=== PATIENT | male | born 2000 | race Caucasian/White ===

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

== ENCOUNTER 2022-05-01 19:01 | Emergency (ER) | payer OTHER ==
[2022-05-01 19:09] VITALS: BP 133/89; PULSE 114; TEMP 99; BMI 21.2
== END 2022-05-01 20:44 | disposition home or self-care (01) ==
LOC: FER 19:01
DX: B34.9 Viral infection, unspecified (principal)
CPT/HCPCS: 99282-25

== ENCOUNTER 2023-11-04 08:38 | Emergency (ER) | payer OTHER ==
[2023-11-04 08:59] VITALS: BP 134/86; PULSE 88; RESP 18; TEMP 97.6; BMI 18.5
[2023-11-04] MEDS ORDERED: BACITRACIN 0.9 GM PACKET TP ONE (10:29)
[2023-11-04] MEDS ORDERED: BACITRACIN ZINC 15 GM TUBE TOPICAL OINTMENT ONE (10:31)
== END 2023-11-04 12:01 | disposition home or self-care (01) ==
LOC: JER 08:38 → JERFT 08:38
DX: S80.811A Abrasion, right lower leg, initial encounter (principal); M79.661 Pain in right lower leg; V47.5XXA Car driver injured in collision with fixed or stationary object in traffic accident, initial encounter; Y93.I9 Activity, other involving external motion
CPT/HCPCS: 73590-TC-RT-FY; 99283-25